=== PATIENT | female | born 1985 | race African-American/Black ===

== ENCOUNTER 2018-12-10 09:34 | Day surgery (SDC) | payer OTHER ==
[2018-12-10 09:47] VITALS: BMI 31.2
[2018-12-10 12:35] VITALS: TEMP 98
[2018-12-10 12:54] VITALS: PULSE 62
[2018-12-10 13:27] VITALS: BP 113/70
== END 2018-12-10 13:42 | disposition home or self-care (01) ==
LOC: JASU-ENDO 09:34
PROVIDERS: ATTEND Internal Medicine Gastroenterology
PROC: 0DJD8ZZ Inspection of Lower Intestinal Tract, Via Natural or Artificial Opening Endoscopic (ICD-10-PCS; principal; 2018-12-10 10:30)
DX: D50.9 Iron deficiency anemia, unspecified (principal); K63.89 Other specified diseases of intestine; K64.8 Other hemorrhoids
CPT/HCPCS: 84703

== ENCOUNTER 2018-12-15 09:46 | Day surgery (SDC) | payer OTHER ==
[2018-12-14 15:11] VITALS: BMI 30.6
[2018-12-15 10:41] VITALS: TEMP 98.3
[2018-12-15 12:56] VITALS: PULSE 69
[2018-12-15 13:30] VITALS: BP 125/83
--- NOTE | 2018-12-16 14:52 | PATH ---
Surgical Pathology Report Patient Name: VERONICA ZHANG [facility]. Rec. #: [id number] /Age/Gender: 1985 (Age: 33) / F Account: [id number] Location: U-ENDOSCOPY Taken: 12/15/2018 Received: 12/15/2018 Reported: 12/16/2018 Physicians: Enrique Riojas D.O. Specimen(s) Received A: STOMACH B: GE JUNCTION C: GASTRIC POLYP BODY Clinical History Anemia, dyspepsia Postoperative diagnosis: Gastritis, gastric polyp Final Diagnosis A. STOMACH, BIOPSY: GASTRIC MUCOSA WITH MODERATE CHRONIC GASTRITIS. IMMUNOHISTOCHEMICAL STAIN FOR H. PYLORI IS NEGATIVE. B. GE JUNCTION, BIOPSY: SQUAMOCOLUMNAR MUCOSA WITH SEVERE ACUTE AND CHRONIC INFLAMMATION AND CHANGES OF SEVERE REFLUX ESOPHAGITIS. NO INTESTINAL METAPLASIA OR DYSPLASIA IDENTIFIED. C. GASTRIC BODY POLYP, BIOPSY: POLYPOID GASTRIC BODY MUCOSA WITH MODERATE CHRONIC GASTRITIS. IMMUNOHISTOCHEMICAL STAIN FOR H. PYLORI IS NEGATIVE. Electronically Signed Janna Aden M.D. Gross Description A. Received in formalin, labeled "biopsy stomach" are 5 rider, irregular portions of soft tissue ranging from 0.3-0.4 cm. in greatest dimension. The specimens are submitted in toto in one cassette. B. Received in formalin, labeled "biopsy GE junction" are 2 rider, irregular portions of soft tissue measuring 0.2 and 0.3 cm. in greatest dimension. The specimens are submitted in toto in one cassette. C. Received in formalin, labeled "biopsy gastric body polyp" are 2 rider, irregular portions of soft tissue measuring 0.1 and 0.3 cm. in greatest dimension. The specimens are submitted in toto in one cassette. 12/15/201812/15/2018
== END 2018-12-15 13:31 | disposition home or self-care (01) ==
LOC: JASU-ENDO 09:46
PROVIDERS: ATTEND Internal Medicine Gastroenterology
PROC: 0DB48ZX Excision of Esophagogastric Junction, Via Natural or Artificial Opening Endoscopic, Diagnostic (ICD-10-PCS; 2018-12-15)
PROC: 0DB68ZX Excision of Stomach, Via Natural or Artificial Opening Endoscopic, Diagnostic (ICD-10-PCS; principal; 2018-12-15 10:30)
DX: K29.70 Gastritis, unspecified, without bleeding (principal); R10.13 Epigastric pain; D50.9 Iron deficiency anemia, unspecified; K31.7 Polyp of stomach and duodenum
CPT/HCPCS: 84703; 88305-TC; 88342-TC

== ENCOUNTER 2019-04-01 16:18 | Emergency (ER) | payer OTHER ==
[2019-04-01 16:23] VITALS: BP 146/92; PULSE 83; TEMP 98.1; BMI 27.8
--- NOTE | 2019-04-01 16:24 | PDOC ---
Rapid Medical Evaluation Chief Complaint: Injury Time Seen by Provider: 04/01/19 16:20 Medical Evaluation: Allergies Allergy/AdvReac Type Severity Reaction Status Date / Time No Known Allergies Allergy Verified 04/01/19 16:21 Vital Signs Temp Pulse Resp BP Pulse Ox 98.1 F 83 16 146/92 100 04/01/19 16:21 04/01/19 16:21 04/01/19 16:21 04/01/19 16:21 04/01/19 16:21 04/01/19 16:23 Pt c/o: rt ankle pain, twisted it yesterday Pt on brief exam: noted tender and swollen rt ankle laterally Pt ordered for: ankle xray Pt to proceed to the ED Discharge Disposition - Diagnosis Ankle pain - Referrals - Patient Instructions - Post Discharge Activity
--- NOTE | 2019-04-01 17:19 | PDOC ---
History of Present Illness - General Chief Complaint: Injury Stated Complaint: RT ANKLE PAIN Time Seen by Provider: 04/01/19 16:20 History Source: Patient Exam Limitations: No Limitations - History of Present Illness Initial Comments: 04/01/19 17:18 sustained inversion injury yesterday after tripping and falling over l sandals. Pain and swelling to right lateral ankle Occurred: reports: yesterday Severity: reports: mild, moderate Pain Location: reports: lower extremity (right ankle and foot) Past History - Past Medical History Allergies/Adverse Reactions: Allergies Allergy/AdvReac Type Severity Reaction Status Date / Time No Known Allergies Allergy Verified 04/01/19 16:21 Home Medications: Ambulatory Orders Amlodipine Besylate 10 mg PO DAILY 12/09/18 Ascorbic Acid [Vitamin C] 500 mg PO DAILY 12/09/18 Atorvastatin Ca [Lipitor] 10 mg PO HS 12/09/18 Chlorthalidone 50 mg PO DAILY 12/09/18 Docusate Sodium [Colace] 100 mg PO DAILY PRN 12/09/18 Ferrous Sulfate 325 mg PO DAILY 12/09/18 Polyethylene Glycol 3350 [Miralax 119 gm Btl -] 17 gm PO DAILY 12/09/18 Anemia: Yes (iron deficiency) GI Disorders: Yes (chronic constipation) HTN: Yes Hypercholesterolemia: Yes - Suicide/Smoking/Psychosocial Hx Smoking History: Never smoked Have you smoked in the past 12 months: No Hx Alcohol Use: No Drug/Substance Use Hx: No Substance Use Type: None Review of Systems - Review of Systems Able to Perform ROS?: Yes Is the patient limited Urdu proficient: Yes Constitutional: Yes: See HPI. No: Symptoms Reported, Fever, Malaise HEENTM: Yes: See HPI. No: Symptoms Reported Musculoskeletal: Yes: Symptoms Reported, See HPI, Joint Pain, Joint Swelling Neurological: Yes: Symptoms reported, See HPI All Other Systems: Reviewed and Negative *Physical Exam - Vital Signs Last Vital Signs Temp Pulse Resp BP Pulse Ox 98.1 F 83 16 146/92 100 04/01/19 16:21 04/01/19 16:21 04/01/19 16:21 04/01/19 16:21 04/01/19 16:21 - Physical Exam General Appearance: Yes: Nourished, Appropriately Dressed, Apparent Distress HEENT: positive: MARISA, Normal ENT Inspection, TMs Normal, Pharynx Normal Neck: positive: Supple. negative: Tender Respiratory/Chest: positive: Lungs Clear Gastrointestinal/Abdominal: positive: Soft Musculoskeletal: positive: Normal Inspection. negative: CVA Tenderness Extremity: positive: Normal Capillary Refill, Tender (some swelling to the lateral aspect of foot, no point tenderness to the medial or lateral malleolus, no fifth metatarsal navicular tenderness. Negative squeeze test. Neurovascular intact to toes). negative: Normal Range of Motion (emitted secondary to tenderness to the lateral malleolus) Integumentary: positive: Dry, Warm Neurologic: positive: latent print examiner II-XII NML intact, Fully Oriented, Alert, Normal Mood/ Affect, Normal Response, Motor Strength /5 Progress Note - Progress Note Progress Note: Right ankle sprain, Negative for fractures or dislocations,. Nacho and Aircast/ crutches provided. *DC/Admit/Observation/Transfer Diagnosis at time of Disposition: Ankle pain Qualifiers: Chronicity: acute Laterality: right Qualified Code(s): M25.571 - Pain in right ankle and joints of right foot - Discharge Dispostion Disposition: HOME Condition at time of disposition: Stable Decision to Admit order: No - Referrals Referrals: Tricia Foss MD [Primary Care Provider] - Efren Gibbs MD [Staff Physician] - - Patient Instructions Printed Discharge Instructions: DI for Ankle Sprain Additional Instructions: Rest, ice to area on and off for 15 minutes 4-6 times a day Avoid heavy lifting or exercise until pain and swelling is resolved or until further directed Keep area highly elevated to reduce swelling Use splints/Nacho wrap as directed Followup with orthopedist in one to 2 days if not improving, if significantly improved may wait one week for followup with orthopedist May use ibuprofen every 6 hours as needed for pain - Post Discharge Activity Forms/Work/School Notes: Back to Work
== END 2019-04-01 17:25 | disposition home or self-care (01) ==
LOC: JERFT 16:18
PROC: 2W3QX1Z Immobilization of Right Lower Leg using Splint (ICD-10-PCS; principal; 2019-04-01)
DX: S93.401A Sprain of unspecified ligament of right ankle, initial encounter (principal); W01.0XXA Fall on same level from slipping, tripping and stumbling without subsequent striking against object, initial encounter; Y93.89 Activity, other specified; Y92.89 Other specified places as the place of occurrence of the external cause; I10 Essential (primary) hypertension; E78.00 Pure hypercholesterolemia, unspecified
CPT/HCPCS: 73610-TC-RT-FY; 99281-25

== ENCOUNTER 2020-02-10 16:19 | Inpatient (IN) | payer OTHER ==
--- NOTE | 2020-02-10 18:39 | PDOC ---
History of Present Illness <Kailey Chahal - Last Filed: 02/10/20 19:03> - General History Source: Patient Exam Limitations: No Limitations - History of Present Illness Initial Comments: 02/10/20 18:39 34 year old female with history of HTN, HLD, and +Quantiferon TB tests in January presents to the ED per Infectious Disease, Dr. Byrd. She denies recent travel. Reports occasional pleuritic pain, tender lymph nodes, recent weight loss, and p ost-nasal drip with blood. Denies fever, night sweats, cough, SOB, hemoptysis, nausea, vomiting, diarrhea, constipation. 02/10/20 19:53 <Jordan Byrnes - Last Filed: 02/10/20 23:53> - General Stated Complaint: +Tuberculosis Time Seen by Provider: 02/10/20 17:03 Past History <Kailey Chahal - Last Filed: 02/10/20 19:03> - Travel History Traveled outside of the country in the last 30 days: No - Medical History Anemia: Yes (iron deficiency) COPD: No GI Disorders: Yes (chronic constipation) HTN: Yes Hypercholesterolemia: Yes - Immunization History Immunization Up to Date: Yes - Psycho-Social/Smoking History Smoking History: Never smoked Have you smoked in the past 12 months: No Information on smoking cessation initiated: No - Substance Abuse Hx (Audit-C & DAST Scrn) How often the patient has a drink containing alcohol: Never Score: In Men: 4 or > Positive; In Women: 3 or > Positive: 0 Screen Result (Pos requires Nsg. Audit-10AR): Negative In the last yr the pt used illegal drug/Rx for NonMed reason: No Score: Yes response is considered Positive: 0 Screen Result (Positive result requires Nsg. DAST-10): Negative <Jordan Byrnes - Last Filed: 02/10/20 23:53> - Medical History Allergies/Adverse Reactions: Allergies Allergy/AdvReac Type Severity Reaction Status Date / Time No Known Allergies Allergy Verified 04/01/19 16:21 Home Medications: Ambulatory Orders Amlodipine Besylate 10 mg PO DAILY 12/09/18 Ascorbic Acid [Vitamin C] 500 mg PO DAILY 12/09/18 Atorvastatin Ca [Lipitor] 10 mg PO HS 12/09/18 Chlorthalidone 50 mg PO DAILY 12/09/18 Docusate Sodium [Colace] 100 mg PO DAILY PRN 12/09/18 Ferrous Sulfate 325 mg PO DAILY 12/09/18 Polyethylene Glycol 3350 [Miralax 119 gm Btl -] 17 gm PO DAILY 12/09/18 Review of Systems - Review of Systems Able to Perform ROS?: Yes Is the patient limited Yakut proficient: No Constitutional: No: Fever, Night Sweats HEENTM: Yes: Other (Tender LAD, blood streaked post nasal drip) Respiratory: No: Cough, Shortness of Breath, Productive cough, Hemoptysis Cardiac (ROS): Yes: Other (Pleuritic CP). No: Chest Pain ABD/GI: No: Constipated, Diarrhea, Nausea, Vomiting : No: Dysuria, Hematuria Neurological: No: Paresthesia, Tingling <Jordan Byrnes - Last Filed: 02/10/20 23:53> *Physical Exam - Vital Signs Last Vital Signs Temp Pulse Resp BP Pulse Ox 98.4 F 84 18 133/88 98 02/10/20 16:20 02/10/20 16:20 02/10/20 16:20 02/10/20 16:20 02/10/20 16:56 <Kailey Chahal - Last Filed: 02/10/20 19:03> - Vital Signs Last Vital Signs Temp Pulse Resp BP Pulse Ox 98.4 F 84 18 133/88 98 02/10/20 16:20 02/10/20 16:20 02/10/20 16:20 02/10/20 16:20 02/10/20 16:56 - Physical Exam General Appearance: Yes: Nourished, Appropriately Dressed. No: Apparent Distress HEENT: positive: EOMI, Normal Voice Neck: negative: Lymphadenopathy (R), Lymphadenopathy (L) Respiratory/Chest: positive: Lungs Clear, Normal Breath Sounds Cardiovascular: positive: Regular Rhythm, Regular Rate, S1, S2 Lymphatic: negative: Adenopathy, Tenderness Musculoskeletal: negative: Decreased Range of Motion Extremity: positive: Normal Inspection, Normal Range of Motion Integumentary: positive: Dry, Warm Neurologic: positive: Fully Oriented, Alert <Jordan Byrnes - Last Filed: 02/10/20 23:53> ED Treatment Course - LABORATORY CBC & Chemistry Diagram: 02/10/20 20:00 02/10/20 20:00 <Jordan Byrnes - Last Filed: 02/10/20 23:53> Medical Decision Making - Medical Decision Making 02/10/20 19:05 Patient is a 34 year old female with history of 2 positive Quantiferon TB tests in January, was advised by Dr. Byrd with infectious disease to go to the ED for admission to have Chest CT with IV contrast and AFB sputum culture done. Patient is otherwise stable and has no significant complaints. Patient will be admitted to hospitalist team and Dr. Byrd is consulted. <Jordan Byrnes - Last Filed: 02/10/20 23:53> Discharge - Admission Yes <Kailey Chahal - Last Filed: 02/10/20 19:03> - Discharge Information Problems reviewed: Yes - Admission Yes <Jordan Byrnes - Last Filed: 02/10/20 23:53> - Discharge Information Clinical Impression/Diagnosis: Tuberculosis Condition: Stable - Follow up/Referral Referrals: Tricia Foss MD [Primary Care Provider] - - Patient Discharge Instructions - Post Discharge Activity
[2020-02-10] MEDS ORDERED: DOCUSATE SODIUM 100 MG CAPSULE (FP) PO PRN (19:23)
--- NOTE | 2020-02-10 19:24 | HP ---
CHIEF COMPLAINT: +Quantiferon, PCP:Prudence HISTORY OF PRESENT ILLNESS: Aleshia Hoang is a 34 yr old F, medical condition HTN, HLD, sent from ID office for evaluation of +Quantiferon. pt seems to be a reliable historian, pt reports she took the Quatiferon test beginning of January which came back positive. repeat done couple of weeks later and also positive. 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 Reports occasional pleuritic pain, tender lymph nodes, recent weight loss, and post- nasal drip with blood. Denies fever, night sweats, cough, SOB, hemoptysis, nausea, vomiting, diarrhea, constipation. ER course was notable for: (1)afebrile (2) (3) Recent Travel: PAST MEDICAL HISTORY: HTN HLD Constipation PAST SURGICAL HISTORY: Social History: Smoking:denies Alcohol:denies Drugs: denies FAMILY HISTORY: Mother- HTN, CVA Father- HTN, throat ca Allergies No Known Allergies Allergy (Verified 04/01/19 16:21) HOME MEDICATIONS: Home Medications Medication Instructions Recorded Amlodipine Besylate 10 mg PO DAILY 12/09/18 Ascorbic Acid [Vitamin C] 500 mg PO DAILY 12/09/18 Atorvastatin Ca [Lipitor] 10 mg PO HS 12/09/18 Chlorthalidone 50 mg PO DAILY 12/09/18 Docusate Sodium [Colace] 100 mg PO DAILY PRN 12/09/18 Ferrous Sulfate 325 mg PO DAILY 12/09/18 Polyethylene Glycol 3350 [Miralax 17 gm PO DAILY 12/09/18 119 gm Btl -] REVIEW OF SYSTEMS CONSTITUTIONAL: Absent: fever, chills, diaphoresis, generalized weakness, malaise, loss of appetite, weight change HEENT: Absent: rhinorrhea, nasal congestion, throat pain, throat swelling, difficulty swallowing, mouth swelling, ear pain, eye pain, visual changes CARDIOVASCULAR: Absent: chest pain, syncope, palpitations, irregular heart rate, lightheadedness, peripheral edema RESPIRATORY: Absent: cough, shortness of breath, dyspnea with exertion, orthopnea, wheezing, stridor, hemoptysis GASTROINTESTINAL: Absent: abdominal pain, abdominal distension, nausea, vomiting, diarrhea, constipation, melena, hematochezia GENITOURINARY: Absent: dysuria, frequency, urgency, hesitancy, hematuria, flank pain, genital pain MUSCULOSKELETAL: Absent: myalgia, arthralgia, joint swelling, back pain, neck pain SKIN: Absent: rash, itching, pallor HEMATOLOGIC/IMMUNOLOGIC: Absent: easy bleeding, easy bruising, lymphadenopathy, frequent infections ENDOCRINE: Absent: unexplained weight gain, unexplained weight loss, heat intolerance, cold intolerance NEUROLOGIC: Absent: headache, focal weakness or paresthesias, dizziness, unsteady gait, seizure, mental status changes, bladder or bowel incontinence PSYCHIATRIC: Absent: anxiety, depression, suicidal or homicidal ideation, hallucinations. PHYSICAL EXAMINATION Vital Signs - 24 hr 02/10/20 02/10/20 16:20 16:56 Temperature 98.4 F Pulse Rate 84 Respiratory 18 Rate Blood Pressure 133/88 O2 Sat by Pulse 99 98 Oximetry (%) GENERAL: Awake, alert, and fully oriented, in no acute distress. HEAD: Normal with no signs of trauma. EYES: Pupils equal, round and reactive to light, extraocular movements intact, sclera anicteric, conjunctiva clear. No lid lag. EARS, NOSE, THROAT: Ears normal, nares patent, oropharynx clear without exudates. Moist mucous membranes. NECK: Normal range of motion, supple without lymphadenopathy, JVD, or masses. LUNGS: Breath sounds equal, clear to auscultation bilaterally. No wheezes, and no crackles. No accessory muscle use. HEART: Regular rate and rhythm, normal S1 and S2 without murmur, rub or gallop. ABDOMEN: Soft, nontender, not distended, normoactive bowel sounds, no guarding, no rebound, no masses. No hepatomegaly or splenomegaly. MUSCULOSKELETAL: Normal range of motion at all joints. No bony deformities or tenderness. No CVA tenderness. UPPER EXTREMITIES: 2+ pulses, warm, well-perfused. No cyanosis. No clubbing. No peripheral edema. LOWER EXTREMITIES: 2+ pulses, warm, well-perfused. No calf tenderness. No peripheral edema. NEUROLOGICAL: Cranial nerves II-XII intact. Normal speech. Normal gait. PSYCHIATRIC: Cooperative. Good eye contact. Appropriate mood and affect. SKIN: Warm, dry, normal turgor, no rashes or lesions noted, normal capillary refill. ASSESSMENT/PLAN: Aleshia Hoang is a 34 yr old F, medical condition HTN, HLD admitted for Admitting Diagnosis +Quantiferon r/o TB Chronic Conditions HTN HLD # +Quantiferon r/o TB -airborne/contact isolation -CT chest -ID consult -sputum AFB ordered -US neck for lymphadenopathy #HTN #HLD -resume home meds Full Code Visit type - Emergency Visit Emergency Visit: Yes Care time: The patient presented to the Emergency Department on the above date and was hospitalized for further evaluation of their emergent condition. - New Patient This patient is new to me today: Yes Date on this admission: 02/10/20 - Critical Care Critical Care patient: No
--- NOTE | 2020-02-10 19:39 | PDOC ---
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 per pt she was having a nasal drip recently ad coughed up blood. was then referred to dr richter who performed tb test which was positive. pt states she had negative test on 08/2019. unsure of any exposures. no recent travel . mild weight loss but attributed to eating less. no night sweats. no current sob. - Physicial Exam PE: 02/10/20 19:37 awake alert lungs clear bilat heart rrr no mrg abd soft nt nd ext wwp. no edema. nocalf tenderness. skin warm and dry. - Medical Decision Making 02/10/20 19:38 34 yo F with h/o positive tb test, hemoptysis, here for workup. plan to admit. per dr richter. ct chest with contrast ordered. basic labs. ct chest and labs pending. pt well appearing currently. Discharge - Discharge Information Problems reviewed: Yes Clinical Impression/Diagnosis: Tuberculosis Condition: Stable - Follow up/Referral - Patient Discharge Instructions - Post Discharge Activity
[2020-02-10 20:16] LABS: BASO % 1.1 % (0-2.0); EOS % 1.2 % (0-4.5); HEMATOCRIT 35.4 % (32.4-45.2); HEMOGLOBIN 11.7 GM/dL (10.7-15.3); LYMPH % 42.9 % (8-40); MCH 27.4 pg (25.7-33.7); MEAN CELL VOLUME 83.1 fl (80-96); MEAN PLT VOLUME 8.7 fl (7.5-11.1); MONO % 8.7 % (3.8-10.2); NEUT % 46.1 % (42.8-82.8); PLATELET COUNT 301 K/MM3 (134-434); RBC 4.26 M/mm3 (3.60-5.2); RDW 14.2 % (11.6-15.6)
[2020-02-10 20:42] LABS: ALBUMIN 3.9 g/dl (3.4-5.0); BILIRUBIN,TOTAL 0.4 mg/dL (0.2-1); BLOOD UREA NITROGEN 13.8 mg/dL (7-18); CALCIUM 8.8 mg/dL (8.5-10.1); CREATININE 0.9 mg/dL (0.55-1.3); POTASSIUM 4.2 mmol/L (3.5-5.1); TOT PROT 7.6 g/dl (6.4-8.2)
[2020-02-10] MEDS ORDERED: ATORVASTATIN CA 10 MG TABLET (FP) ONE (22:51)
[2020-02-10] MEDS: ATORVASTATIN CA 10 MG TABLET (FP) PO SCH (22:57)
[2020-02-11 04:52] VITALS: BMI 29.6
[2020-02-11 07:52] LABS: HEMOGLOBIN 10.6 GM/dL (10.7-15.3); MCH 26.7 pg (25.7-33.7); MCHC 32.1 g/dl (32.0-36.0); MEAN CELL VOLUME 83.2 fl (80-96); PLATELET COUNT 246 K/MM3 (134-434); RBC 3.96 M/mm3 (3.60-5.2); RDW 13.6 % (11.6-15.6); WHITE BLOOD COUNT 4.1 K/mm3 (4.0-10.0)
[2020-02-11 08:17] LABS: ALBUMIN 3.4 g/dl (3.4-5.0); BILIRUBIN,TOTAL 0.6 mg/dL (0.2-1); BLOOD UREA NITROGEN 9.3 mg/dL (7-18); CALCIUM 8.5 mg/dL (8.5-10.1); CREATININE 0.5 mg/dL (0.55-1.3); POTASSIUM 3.5 mmol/L (3.5-5.1); TOT PROT 6.4 g/dl (6.4-8.2)
--- NOTE | 2020-02-11 09:13 | PN ---
Progress Note, Physician Chief Complaint: Seen and examined. On RA. In no distress. On isolation precautions to r/o TB. COVID PCR also pending History of Present Illness: 34 yr old F, medical condition HTN, HLD admitted to r/o TB - Current Medication List Current Medications: Active Medications Amlodipine Besylate (Norvasc -) 10 mg PO DAILY [facility] Ascorbic Acid (Vitamin C -) 500 mg PO DAILY@0800 [facility] Atorvastatin Calcium (Lipitor -) 10 mg PO HS [facility] Last Admin: 02/10/20 22:57 Dose: 10 mg Documented by: Chlorthalidone (Hygroton -) 50 mg PO DAILY [facility] Docusate Sodium (Colace -) 100 mg PO DAILY PRN PRN Reason: CONSTIPATION Ferrous Sulfate (Feosol -) 325 mg PO DAILY@0800 [facility] Polyethylene Glycol (Miralax (For Daily Use) -) 17 gm PO DAILY [facility] - Objective Vital Signs: Vital Signs Temperature 99.1 F 02/11/20 06:00 Pulse Rate 73 02/11/20 06:00 Respiratory Rate 20 02/11/20 06:00 Blood Pressure 153/73 02/11/20 06:00 O2 Sat by Pulse Oximetry (%) 100 02/10/20 22:40 Constitutional: Yes: Well Nourished, No Distress, Calm Eyes: Yes: WNL, Conjunctiva Clear HENT: Yes: WNL, Atraumatic, Normocephalic Neck: Yes: WNL, Supple, Trachea Midline Cardiovascular: Yes: WNL, Regular Rate and Rhythm Respiratory: Yes: WNL, Regular, CTA Bilaterally Gastrointestinal: Yes: WNL, Normal Bowel Sounds ...Rectal Exam: Yes: Deferred Genitourinary: Yes: WNL Breast(s): Yes: WNL Musculoskeletal: Yes: WNL Extremities: Yes: WNL Edema: No Peripheral Pulses WNL: Yes Peripheral Pulses: Left Radial: 2+, Right Radial: 2+, Left Doralis Pedis: 2+, Ri ght Dorsalis Pedis: 2+, Left Femoral: 2+, Right Femoral: 2+ Integumentary: Yes: WNL Neurological: Yes: WNL, Alert, Oriented ...Motor Strength: WNL Psychiatric: Yes: WNL Labs: CBC, BMP 02/11/20 06:19 02/11/20 06:19 - ....Imaging Chest X-ray: Report Reviewed Problem List - Problems (1) HTN (hypertension) Assessment/Plan: normotensive c/w hctz Code(s): I10 - ESSENTIAL (PRIMARY) HYPERTENSION (2) HLD (hyperlipidemia) Assessment/Plan: c/w atorvastatin low chol diet Code(s): E78.5 - HYPERLIPIDEMIA, UNSPECIFIED (3) Positive 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 Assessment/Plan: positive x 2 no infiltarte seen on CT right lower lobe pulmonic calcification 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 2mm right lower lobe pulmonary nodule Code(s): R76.12 - NONSPEC REACTION TO GAMMA INTRFRN RESPNS W/O ACTV TUBRCLOSIS (4) Tuberculosis Assessment/Plan: r/o active TB AFB x 3 specimens if can not expectorate-will obtain induction Code(s): A15.9 - RESPIRATORY TUBERCULOSIS UNSPECIFIED (5) Person under investigation for COVID-19 Assessment/Plan: COVID Suspicion low On RA strict airborne/droplet precautions until resulted Code(s): Z20.828 - CONTACT W AND EXPOSURE TO OTH VIRAL COMMUNICABLE DISEASES (6) Prophylactic measure Assessment/Plan: FEN Fluids: adequate PO intake Electrolytes: monitor & replete as needed Nutrition: low chol diet DVT ambulatory Dispo Maintain as inpatient full code discharge planning Code(s): Z29.9 - ENCOUNTER FOR PROPHYLACTIC MEASURES, UNSPECIFIED (7) Hemoptysis Assessment/Plan: saline nebs quantify amount Code(s): R04.2 - HEMOPTYSIS Visit type - Emergency Visit Emergency Visit: Yes ED Registration Date: 02/10/20 Care time: The patient presented to the Emergency Department on the above date and was hospitalized for further evaluation of their emergent condition. - New Patient This patient is new to me today: Yes Date on this admission: 02/11/20 - Critical Care Critical Care patient: No - Discharge Referral Referred to [facility] Med P.C.: No
[2020-02-11] MEDS ORDERED: PT OWN MED DRAWER 7, Y5N ONE (09:51)
[2020-02-11] MEDS ORDERED: CHLORTHALIDONE 50 MG TABLET PO SCH (10:00)
[2020-02-11] MEDS: FERROUS SO4 325 MG TABLET (FP) PO SCH (10:01)
[2020-02-11] MEDS: ASCORBIC ACID 500 MG TABLET (FP) PO SCH (10:01)
[2020-02-11] MEDS: amLODIPine BESYLATE 10 MG TABLET (FP) PO SCH (10:01)
[2020-02-11] MEDS: POLYETHYLENE GLYCOL 3350 119 GM BTL PO SCH (10:01)
[2020-02-11] MEDS ORDERED: CHLORTHALIDONE 25 MG TABLET PO SCH (10:12)
--- NOTE | 2020-02-11 10:54 | PN ---
Progress Note (short form) - Note Progress Note: PULMONARY CONSULTATION DICTATED 02/11/20 IMP R/O ACTIVE TB vs LATENT TB +QUANTIFERON GOLD HEMOPTYSIS HTN HLD PLAN SPUTUM AFB X 3 IF AFB NEGATIVE START RIFAMPIN 600mg DAILY X 4 MONTHS OR INH + RIFAMPIN DAILY X 3 MONTHS F/U CHEST X-RAYS DR BLISS Problem List - Problems (1) HLD (hyperlipidemia) Code(s): E78.5 - HYPERLIPIDEMIA, UNSPECIFIED (2) HTN (hypertension) Code(s): I10 - ESSENTIAL (PRIMARY) HYPERTENSION (3) Positive 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 Code(s): R76.12 - NONSPEC REACTION TO GAMMA INTRFRN RESPNS W/O ACTV TUBRCLOSIS
[2020-02-11] MEDS: HYDROCHLOROTHIAZIDE 12.5 MG CAPSULE (FP) PO SCH (13:59)
--- NOTE | 2020-02-11 14:25 | CONS ---
DATE OF CONSULTATION: 02/11/2020 PULMONARY CONSULTATION REFERRING PHYSICIAN: DARCI Delgado HISTORY OF PRESENT ILLNESS: Patient is a 34-year-old female with a past medical history of hypertension and hyperlipidemia, admitted to [facility] for evaluation of positive QuantiFERON. Patient apparently had an episode about 3 months ago of coughing and also had an episode of hemoptysis. She states that at the time she had sinus congestion. Since that time she has been having intermittent blood-streaked sputum which she attributes to postnasal drip and reflux. Apparently she underwent a QuantiFERON test at the beginning of August which was negative. She had a repeat done a couple of weeks prior to this admission that also came back positive. Denies any weight loss. Denies sweats. Denies hemoptysis. Denies any fevers or chills. Denies any chest pains or palpitations. The patient is currently employed as a home health aide. Denies any recent exposure to patients with TB. PAST MEDICAL HISTORY: Again includes hypertension and hyperlipidemia. CURRENT MEDICATIONS: Include MiraLAX, Colace, Lipitor, Feosol, hydrochlorothiazide and vitamin B and C. SOCIAL HISTORY: Born in [place]. Nurse's aide by profession. No history of tobacco use. PHYSICAL EXAMINATION: General: Patient is a well-developed, well-nourished female, awake, alert, in no acute distress. Vital Signs: She is afebrile, O2 saturation is 100 on room air, blood pressure 163/73, respiratory rate is 20. HEENT: Normocephalic, atraumatic. Neck: Supple. Heart: Regular, S1-S2. Chest: Clear. Abdomen: Soft, bowel sounds are positive. Extremities: No cyanosis or edema. LABORATORIES: WBC is 4.1, hemoglobin 10.6, hematocrit 33, platelet count of 246,000. BUN is 9, creatinine 0.5. Serology COVID pending. Chest CT: A 2-mm noncalcified nodule on oblique in the right lower lobe inferiorly. No evidence of infiltration or effusions. IMPRESSION: 1. Positive QuantiFERON gold. 2. Rule out active tuberculosis vs latent TB 3. Hemoptysis. 4. Hypertension. 5. Hyperlipidemia. PLAN: Sputum for AFB x3. If AFB negative consider rifampin 600 daily x4 months or INH 300mg + rifampin 600mg daily x3 months. Followup chest x-rays. Abraham SALMERON/[id number] MTDD
--- NOTE | 2020-02-11 17:31 | CON.ID ---
Consult - History of Present Illness History of Present Illness: 34 y.o. Jimmy born female with PMH of HTN, HLD, iron-deficiency anemia, sinusitis admitted to r/o active TB. Pt states that she had some blood streaked- sputum a few months ago that was attributed to post-nasal drip. Routine screening for TB was done in 08/2019 and she was PPD negative at the time. Due to some mild, occasional hemoptysis she had Quantiferon testing one month ago which was positive/CXR negative. Repeat testing 2 wks later was positive as well. Was seen by ENT and not found to have any acute issues. She denies persistent cough, SOB, fever, chills, or nightsweats. She has lost approximately 10 lbs in the last few months but possibly intentionally. 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 Pt does complain of mild b/l neck discomfort when taking a deep breath. In the ER she was found to have normal vitals, afebrile, without respiratory distress. CT Chest with small RLL nodule but otherwise no infiltrates/effusions. Pt denies hemoptysis today and has not been coughing. States she has no other complaints. - History Source History Provided By: Patient Limitations to Obtaining History: No Limitations - Past Medical History Cardio/Vascular: Yes: HTN, Hyperlipdemia ...: No ENT: Yes: Sinusitis - Alcohol/Substance Use Hx Alcohol Use: No - Smoking History Smoking history: Never smoked Have you smoked in the past 12 months: No - Social History Occupation: Home health aid Came to [place] (year[place] 10 yrs ago History of Recent Travel: No Home Medications - Allergies Allergies/Adverse Reactions: Allergies Allergy/AdvReac Type Severity Reaction Status Date / Time No Known Allergies Allergy Verified 04/01/19 16:21 - Home Medications Home Medications: Ambulatory Orders Amlodipine Besylate 10 mg PO DAILY 12/09/18 Ascorbic Acid [Vitamin C] 500 mg PO DAILY 12/09/18 Atorvastatin Ca [Lipitor] 10 mg PO HS 12/09/18 Chlorthalidone 50 mg PO DAILY 12/09/18 Docusate Sodium [Colace] 100 mg PO DAILY PRN 12/09/18 Ferrous Sulfate 325 mg PO DAILY 12/09/18 Polyethylene Glycol 3350 [Miralax 119 gm Btl -] 17 gm PO DAILY 12/09/18 Review of Systems - Review of Systems Constitutional: reports: No Symptoms Eyes: reports: No Symptoms Neck: reports: Swollen Glands (? b/l tenderness occasionally) Cardiovascular: reports: No Symptoms Respiratory: reports: Hemoptysis (scant, occasional) Gastrointestinal: reports: No Symptoms Genitourinary: reports: No Symptoms Breasts: reports: No Symptoms Reported Musculoskeletal: reports: No Symptoms Integumentary: reports: No Symptoms Neurological: reports: No Symptoms Endocrine: reports: No Symptoms Hematology/Lymphatic: reports: No Symptoms Psychiatric: reports: No Symptoms Physical Exam Vital Signs: Vital Signs Temperature 98.4 F 02/11/20 15:50 Pulse Rate 77 02/11/20 15:50 Respiratory Rate 20 02/11/20 15:50 Blood Pressure 127/89 02/11/20 15:50 O2 Sat by Pulse Oximetry (%) 100 02/11/20 09:00 Constitutional: Yes: Well Nourished, No Distress, Calm Eyes: Yes: Conjunctiva Clear, EOM Intact, PERRL HENT: Yes: Atraumatic, Normocephalic Cardiovascular: Yes: Regular Rate and Rhythm Respiratory: Yes: CTA Bilaterally Gastrointestinal: Yes: Normal Bowel Sounds, Soft Renal/: Yes: WNL Musculoskeletal: Yes: WNL Extremities: Yes: WNL Edema: No Peripheral Pulses WNL: Yes Integumentary: Yes: WNL Neurological: Yes: Alert, Oriented Psychiatric: Yes: Alert Labs: CBC, BMP 02/11/20 06:19 02/11/20 06:19 Laboratory Tests 02/10/20 02/10/20 02/10/20 20:00 20:00 20:00 WBC 5.0 RBC 4.26 Hgb 11.7 Hct 35.4 MCV 83.1 MCH 27.4 MCHC 33.0 RDW 14.2 Plt Count 301 MPV 8.7 Absolute Neuts (auto) 2.3 Neutrophils % 46.1 Lymphocytes % 42.9 H Monocytes % 8.7 Eosinophils % 1.2 Basophils % 1.1 Nucleated RBC % 0 Sodium 139 Potassium 4.2 Chloride 105 Carbon Dioxide 28 Anion Gap 6 L BUN 13.8 Creatinine 0.9 Est GFR (CKD-EPI)AfAm 95.34 Est GFR (CKD-EPI)NonAf 82.26 Random Glucose 93 Calcium 8.8 Magnesium Total Bilirubin 0.4 AST 26 ALT 22 Alkaline Phosphatase 59 Total Protein 7.6 Albumin 3.9 Serum , Qual Negative 02/11/20 02/11/20 06:19 06:19 WBC 4.1 RBC 3.96 Hgb 10.6 L Hct 33.0 MCV 83.2 MCH 26.7 MCHC 32.1 RDW 13.6 Plt Count 246 MPV 9.0 Absolute Neuts (auto) Neutrophils % Lymphocytes % Monocytes % Eosinophils % Basophils % Nucleated RBC % Sodium 137 Potassium 3.5 Chloride 104 Carbon Dioxide 27 Anion Gap 7 L BUN 9.3 Creatinine 0.5 L Est GFR (CKD-EPI)AfAm 144.31 Est GFR (CKD-EPI)NonAf 124.51 Random Glucose 78 Calcium 8.5 Magnesium 2.0 Total Bilirubin 0.6 AST 12 L ALT 17 Alkaline Phosphatase 48 Total Protein 6.4 Albumin 3.4 Serum , Qual Imaging - Results Chest X-ray: Pending X-ray: Pending Cat Scan: Report Reviewed Problem List - Problems (1) HLD (hyperlipidemia) Code(s): E78.5 - HYPERLIPIDEMIA, UNSPECIFIED (2) HTN (hypertension) Code(s): I10 - ESSENTIAL (PRIMARY) HYPERTENSION (3) Hemoptysis Code(s): R04.2 - HEMOPTYSIS (4) Positive 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 Code(s): R76.12 - NONSPEC REACTION TO GAMMA INTRFRN RESPNS W/O ACTV TUBRCLOSIS Assessment/Plan 34 y.o. female with HTN, HLD, anemia, sinusitis presents for episodes of hemoptysis and recent +Quantiferon tests R/O Active vs latent TB Lympadenopathy HTN HLD Anemia Sinusitis -- send sputum for AFB -- on airborne precautions -- CT results noted, follow up Neck Xray, consider CT -- follow up COVID screen results -- no hemoptysis currently/vitals stable/without respiratory symptoms Will follow Thank you
[2020-02-11] MEDS: ATORVASTATIN CA 10 MG TABLET (FP) PO SCH (21:42)
[2020-02-12] MEDS: ASCORBIC ACID 500 MG TABLET (FP) PO SCH (08:47)
[2020-02-12] MEDS: HYDROCHLOROTHIAZIDE 12.5 MG CAPSULE (FP) PO SCH (09:06)
[2020-02-12] MEDS: POLYETHYLENE GLYCOL 3350 119 GM BTL PO SCH (09:06)
[2020-02-12] MEDS: FERROUS SO4 325 MG TABLET (FP) PO SCH (09:06)
[2020-02-12] MEDS: amLODIPine BESYLATE 10 MG TABLET (FP) PO SCH (09:06)
--- NOTE | 2020-02-12 09:28 | PN ---
Progress Note, Physician Chief Complaint: Seen and examined. On RA. In no distress. On isolation precautions to r/o TB. 08/13 sputum cx sent. Not able to sproduce sputum. COVID PCR also pending History of Present Illness: 34 yr old F, medical condition HTN, HLD admitted to r/o TB - Current Medication List Current Medications: Active Medications Amlodipine Besylate (Norvasc -) 10 mg PO DAILY [facility] Last Admin: 02/12/20 09:06 Dose: 10 mg Documented by: Ascorbic Acid (Vitamin C -) 500 mg PO DAILY@0800 [facility] Last Admin: 02/12/20 08:47 Dose: 500 mg Documented by: Atorvastatin Calcium (Lipitor -) 10 mg PO HS [facility] Last Admin: 02/11/20 21:42 Dose: 10 mg Documented by: Docusate Sodium (Colace -) 100 mg PO DAILY PRN PRN Reason: CONSTIPATION Ferrous Sulfate (Feosol -) 325 mg PO DAILY@0800 [facility] Last Admin: 02/12/20 09:06 Dose: 325 mg Documented by: Hydrochlorothiazide (Hctz -) 12.5 mg PO DAILY [facility] Last Admin: 02/12/20 09:06 Dose: 12.5 mg Documented by: Polyethylene Glycol (Miralax (For Daily Use) -) 17 gm PO DAILY [facility] Last Admin: 02/12/20 09:06 Dose: 17 gm Documented by: - Objective Vital Signs: Vital Signs Temperature 98.6 F 02/12/20 07:49 Pulse Rate 72 02/12/20 07:49 Respiratory Rate 20 02/12/20 07:49 Blood Pressure 114/77 02/12/20 07:49 O2 Sat by Pulse Oximetry (%) 100 02/11/20 09:00 Additional Findings/Remarks: Constitutional: Yes: Well Nourished, No Distress, Calm Eyes: Yes: WNL, Conjunctiva Clear HENT: Yes: WNL, Atraumatic, Normocephalic Neck: Yes: WNL, Supple, Trachea Midline Cardiovascular: Yes: WNL, Regular Rate and Rhythm Respiratory: Yes: WNL, Regular, CTA Bilaterally Gastrointestinal: Yes: WNL, Normal Bowel Sounds ...Rectal Exam: Yes: Deferred Genitourinary: Yes: WNL Breast(s): Yes: WNL Musculoskeletal: Yes: WNL Extremities: Yes: WNL Edema: No Peripheral Pulses WNL: Yes Peripheral Pulses: Left Radial: 2+, Right Radial: 2+, Left Doralis Pedis: 2+, Right Dorsalis Pedis: 2+, Left Femoral: 2+, Right Femoral: 2+ Integumentary: Yes: WNL Neurological: Yes: WNL, Alert, Oriented ...Motor Strength: WNL Psychiatric: Yes: WNL Labs: CBC, BMP 02/11/20 06:19 02/11/20 06:19 Problem List - Problems (1) HTN (hypertension) Assessment/Plan: normotensive c/w hctz Code(s): I10 - ESSENTIAL (PRIMARY) HYPERTENSION (2) HLD (hyperlipidemia) Assessment/Plan: c/w atorvastatin low chol diet Code(s): E78.5 - HYPERLIPIDEMIA, UNSPECIFIED (3) Positive 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 Assessment/Plan: positive x 2 no infiltrate seen on CT right lower lobe pulmonic calcification 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 2mm right lower lobe pulmonary nodule Code(s): R76.12 - NONSPEC REACTION TO GAMMA INTRFRN RESPNS W/O ACTV TUBRCLOSIS (4) Tuberculosis Assessment/Plan: r/o active TB AFB x 3 specimens-1 received Code(s): A15.9 - RESPIRATORY TUBERCULOSIS UNSPECIFIED (5) Person under investigation for COVID-19 Assessment/Plan: COVID Suspicion low On RA strict airborne/droplet precautions until resulted Code(s): Z20.828 - CONTACT W AND EXPOSURE TO OTH VIRAL COMMUNICABLE DISEASES (6) Prophylactic measure Assessment/Plan: FEN Fluids: adequate PO intake Electrolytes: monitor & replete as needed Nutrition: low chol diet DVT ambulatory Dispo Maintain as inpatient full code discharge planning Code(s): Z29.9 - ENCOUNTER FOR PROPHYLACTIC MEASURES, UNSPECIFIED (7) Hemoptysis Assessment/Plan: saline nebs quantify amount Code(s): R04.2 - HEMOPTYSIS Visit type - Emergency Visit Emergency Visit: Yes ED Registration Date: 02/10/20 Care time: The patient presented to the Emergency Department on the above date and was hospitalized for further evaluation of their emergent condition. - New Patient This patient is new to me today: No - Critical Care Critical Care patient: No - Discharge Referral Referred to [facility] Med P.C.: No
[2020-02-12] MEDS ORDERED: SODIUM CHLORIDE FOR INHALATION 3 ML VIAL.NEB IH PRN (10:14)
[2020-02-12 13:01] LABS: BASO % 0.7 % (0-2.0); EOS % 1.5 % (0-4.5); HEMATOCRIT 36.6 % (32.4-45.2); HEMOGLOBIN 11.9 GM/dL (10.7-15.3); LYMPH % 42.7 % (8-40); MCH 27.2 pg (25.7-33.7); MCHC 32.4 g/dl (32.0-36.0); MEAN CELL VOLUME 83.7 fl (80-96); MEAN PLT VOLUME 9.2 fl (7.5-11.1); MONO % 9.6 % (3.8-10.2); NEUT % 45.5 % (42.8-82.8); PLATELET COUNT 290 K/MM3 (134-434); RBC 4.37 M/mm3 (3.60-5.2); WHITE BLOOD COUNT 4.6 K/mm3 (4.0-10.0)
[2020-02-12 13:06] LABS: ALBUMIN 3.8 g/dl (3.4-5.0); BILIRUBIN,TOTAL 0.4 mg/dL (0.2-1); BLOOD UREA NITROGEN 9.9 mg/dL (7-18); CALCIUM 9.3 mg/dL (8.5-10.1); CREATININE 0.6 mg/dL (0.55-1.3); MAGNESIUM 2.4 mg/dL (1.8-2.4); POTASSIUM 3.7 mmol/L (3.5-5.1); TOT PROT 7.2 g/dl (6.4-8.2)
--- NOTE | 2020-02-12 13:26 | PN ---
Progress Note (short form) - Note Progress Note: PULMONARY No hemoptysis, shortness of breath, cough. Unable to produce sputum. Vital Signs Period Temp Pulse Resp BP Sys/Rodarte Pulse Ox Last 24 Hr 97.7 F-98.6 F 62-78 20-20 114-140/72-89 Gen: NAD at rest Heart: RRR Lung: decreased breath sounds at the bases Abd: soft, nontender Ext: no edema CBC, BMP 02/12/20 11:35 02/12/20 11:35 Active Medications Amlodipine Besylate (Norvasc -) 10 mg PO DAILY [facility] Last Admin: 02/12/20 09:06 Dose: 10 mg Documented by: Ascorbic Acid (Vitamin C -) 500 mg PO DAILY@0800 [facility] Last Admin: 02/12/20 08:47 Dose: 500 mg Documented by: Atorvastatin Calcium (Lipitor -) 10 mg PO HS [facility] Last Admin: 02/11/20 21:42 Dose: 10 mg Documented by: Docusate Sodium (Colace -) 100 mg PO DAILY PRN PRN Reason: CONSTIPATION Ferrous Sulfate (Feosol -) 325 mg PO DAILY@0800 [facility] Last Admin: 02/12/20 09:06 Dose: 325 mg Documented by: Hydrochlorothiazide (Hctz -) 12.5 mg PO DAILY [facility] Last Admin: 02/12/20 09:06 Dose: 12.5 mg Documented by: Polyethylene Glycol (Miralax (For Daily Use) -) 17 gm PO DAILY [facility] Last Admin: 02/12/20 09:06 Dose: 17 gm Documented by: Sodium Chloride (Normal Saline For Inhalation -) 3 ml IH Q6H PRN PRN Reason: WHEEZING A/P +Quantiferon Suspect Latent TB Hemoptysis likely from Epistaxis HTN Hyperlipidemia Lung Nodules - agree with treatment for latent TB - can continue treatment as outpt - no further inpatient work up from pulmonary standpoint - outpt f/u
--- NOTE | 2020-02-12 19:25 | PN ---
Progress Note, Physician History of Present Illness: Pt states she feels well. Denies cough/sputum production, hemoptysis, SOB, fever/chills. Wishes to go home. - Current Medication List Current Medications: Active Medications Amlodipine Besylate (Norvasc -) 10 mg PO DAILY [facility] Last Admin: 02/12/20 09:06 Dose: 10 mg Documented by: Ascorbic Acid (Vitamin C -) 500 mg PO DAILY@0800 [facility] Last Admin: 02/12/20 08:47 Dose: 500 mg Documented by: Atorvastatin Calcium (Lipitor -) 10 mg PO HS [facility] Last Admin: 02/11/20 21:42 Dose: 10 mg Documented by: Docusate Sodium (Colace -) 100 mg PO DAILY PRN PRN Reason: CONSTIPATION Ferrous Sulfate (Feosol -) 325 mg PO DAILY@0800 [facility] Last Admin: 02/12/20 09:06 Dose: 325 mg Documented by: Hydrochlorothiazide (Hctz -) 12.5 mg PO DAILY [facility] Last Admin: 02/12/20 09:06 Dose: 12.5 mg Documented by: Polyethylene Glycol (Miralax (For Daily Use) -) 17 gm PO DAILY [facility] Last Admin: 02/12/20 09:06 Dose: 17 gm Documented by: Sodium Chloride (Normal Saline For Inhalation -) 3 ml IH Q6H PRN PRN Reason: WHEEZING - Objective Vital Signs: Vital Signs Temperature 98.3 F 02/12/20 09:00 Pulse Rate 62 02/12/20 09:00 Respiratory Rate 20 02/12/20 09:00 Blood Pressure 125/76 02/12/20 09:00 O2 Sat by Pulse Oximetry (%) 100 02/11/20 09:00 Constitutional: Yes: No Distress, Calm Cardiovascular: Yes: Regular Rate and Rhythm Respiratory: Yes: CTA Bilaterally Gastrointestinal: Yes: Normal Bowel Sounds, Soft Genitourinary: Yes: WNL Extremities: Yes: WNL Integumentary: Yes: WNL Neurological: Yes: Alert, Oriented Labs: CBC, BMP 02/12/20 11:35 02/12/20 11:35 Laboratory Last Values WBC 4.6 K/mm3 (4.0-10.0) 02/12/20 11:35 RBC 4.37 M/mm3 (3.60-5.2) 02/12/20 11:35 Hgb 11.9 GM/dL (10.7-15.3) 02/12/20 11:35 Hct 36.6 % (32.4-45.2) 02/12/20 11:35 MCV 83.7 fl (80-96) 02/12/20 11:35 MCH 27.2 pg (25.7-33.7) 02/12/20 11:35 MCHC 32.4 g/dl (32.0-36.0) 02/12/20 11:35 RDW 14.0 % (11.6-15.6) 02/12/20 11:35 Plt Count 290 K/MM3 (134-434) 02/12/20 11:35 MPV 9.2 fl (7.5-11.1) 02/12/20 11:35 Absolute Neuts (auto) 2.1 K/mm3 (1.5-8.0) 02/12/20 11:35 Neutrophils % 45.5 % (42.8-82.8) 02/12/20 11:35 Lymphocytes % 42.7 % (8-40) H 02/12/20 11:35 Monocytes % 9.6 % (3.8-10.2) 02/12/20 11:35 Eosinophils % 1.5 % (0-4.5) 02/12/20 11:35 Basophils % 0.7 % (0-2.0) 02/12/20 11:35 Nucleated RBC % 0 % (0-0) 02/12/20 11:35 Sodium 138 mmol/L (136-145) 02/12/20 11:35 Potassium 3.7 mmol/L (3.5-5.1) 02/12/20 11:35 Chloride 102 mmol/L (98-107) 02/12/20 11:35 Carbon Dioxide 26 mmol/L (21-32) 02/12/20 11:35 Anion Gap 10 MMOL/L (8-16) 02/12/20 11:35 BUN 9.9 mg/dL (7-18) 02/12/20 11:35 Creatinine 0.6 mg/dL (0.55-1.3) 02/12/20 11:35 Est GFR (CKD-EPI)AfAm 135.91 02/12/20 11:35 Est GFR (CKD-EPI)NonAf 117.26 02/12/20 11:35 Random Glucose 83 mg/dL (74-106) 02/12/20 11:35 Calcium 9.3 mg/dL (8.5-10.1) 02/12/20 11:35 Magnesium 2.4 mg/dL (1.8-2.4) 02/12/20 11:35 Total Bilirubin 0.4 mg/dL (0.2-1) 02/12/20 11:35 AST 14 U/L (15-37) L 02/12/20 11:35 ALT 18 U/L (13-61) 02/12/20 11:35 Alkaline Phosphatase 54 U/L (45-117) 02/12/20 11:35 Total Protein 7.2 g/dl (6.4-8.2) 02/12/20 11:35 Albumin 3.8 g/dl (3.4-5.0) 02/12/20 11:35 Serum , Qual Negative 02/10/20 20:00 COVID-19 ([facility]) Not detected (Not Detected) 02/11/20 01:29 - ....Imaging Cat Scan: Report Reviewed Problem List - Problems (1) HLD (hyperlipidemia) Code(s): E78.5 - HYPERLIPIDEMIA, UNSPECIFIED (2) HTN (hypertension) Code(s): I10 - ESSENTIAL (PRIMARY) HYPERTENSION (3) Hemoptysis Code(s): R04.2 - HEMOPTYSIS (4) Positive 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 Code(s): R76.12 - NONSPEC REACTION TO GAMMA INTRFRN RESPNS W/O ACTV TUBRCLOSIS Assessment/Plan 34 y.o. female with HTN, HLD, anemia, sinusitis presents for occasional episodes of hemoptysis and recent +Quantiferon tests Likely latent TB HTN HLD Anemia Sinusitis -- pt afebrile, without cough, no hemoptysis or symptoms of active infection -- Currently on Amlodipine, suggest avoid Rifampin/Rifapentine unless can change anti-hypertensive med -- can give INH daily with Vit B6 50 mg po daily x 9 months, baseline LFT is normal - needs regular monitoring of LFTs, monitor for s/s of pulmonary infection, avoidance of alcohol while on treatment -- f/u as outpt
[2020-02-12] MEDS: ATORVASTATIN CA 10 MG TABLET (FP) PO SCH (22:13)
[2020-02-13 06:36] VITALS: BP 132/79; PULSE 67; TEMP 98.4
--- NOTE | 2020-02-13 07:53 | DS ---
Physical Exam: SUBJECTIVE: Patient seen and examined. Cleared medically and from Pulmonary and ID for discharge to home with outpatient follow OBJECTIVE: Vital Signs Period Temp Pulse Resp BP Sys/Rodarte Pulse Ox Last 24 Hr 98.1 F-98.4 F 62-80 18-20 119-132/70-79 98-99 PHYSICAL EXAM Constitutional: Yes: Well Nourished, No Distress, Calm Eyes: Yes: WNL, Conjunctiva Clear HENT: Yes: WNL, Atraumatic, Normocephalic Neck: Yes: WNL, Supple, Trachea Midline Cardiovascular: Yes: WNL, Regular Rate and Rhythm Respiratory: Yes: WNL, Regular, CTA Bilaterally Gastrointestinal: Yes: WNL, Normal Bowel Sounds ...Rectal Exam: Yes: Deferred Genitourinary: Yes: WNL Breast(s): Yes: WNL Musculoskeletal: Yes: WNL Extremities: Yes: WNL Edema: No Peripheral Pulses WNL: Yes Peripheral Pulses: Left Radial: 2+, Right Radial: 2+, Left Doralis Pedis: 2+, Right Dorsalis Pedis: 2+, Left Femoral: 2+, Right Femoral: 2+ Integumentary: Yes: WNL Neurological: Yes: WNL, Alert, Oriented ...Motor Strength: WNL Psychiatric: Yes: WNL LABS Laboratory Results - last 24 hr 02/11/20 02/12/20 02/12/20 01:29 11:35 11:35 WBC 4.6 RBC 4.37 Hgb 11.9 Hct 36.6 MCV 83.7 MCH 27.2 MCHC 32.4 RDW 14.0 Plt Count 290 MPV 9.2 Absolute Neuts (auto) 2.1 Neutrophils % 45.5 Lymphocytes % 42.7 H Monocytes % 9.6 Eosinophils % 1.5 Basophils % 0.7 Nucleated RBC % 0 Sodium 138 Potassium 3.7 Chloride 102 Carbon Dioxide 26 Anion Gap 10 BUN 9.9 Creatinine 0.6 Est GFR (CKD-EPI)AfAm 135.91 Est GFR (CKD-EPI)NonAf 117.26 Random Glucose 83 Calcium 9.3 Magnesium 2.4 Total Bilirubin 0.4 AST 14 L ALT 18 Alkaline Phosphatase 54 Total Protein 7.2 Albumin 3.8 COVID-19 ([facility]) Not detected HOSPITAL COURSE: Date of Admission:02/10/20 Date of Discharge: 02/13/20 Problem List - Problems (1) HTN (hypertension) Assessment/Plan: normotensive c/w hctz on dc Code(s): I10 - ESSENTIAL (PRIMARY) HYPERTENSION (2) HLD (hyperlipidemia) Assessment/Plan: c/w atorvastatin on dc low chol diet Code(s): E78.5 - HYPERLIPIDEMIA, UNSPECIFIED (3) Positive 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 Assessment/Plan: positive x 2 no infiltrate seen on CT right lower lobe pulmonic calcification 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 2mm right lower lobe pulmonary nodule can follow with pulmonary as outpt Code(s): R76.12 - NONSPEC REACTION TO GAMMA INTRFRN RESPNS W/O ACTV TUBRCLOSIS (4) Tuberculosis Assessment/Plan: latent TB AFB x 3 specimens-1 received cleared for DC-PATTI contacted Code(s): A15.9 - RESPIRATORY TUBERCULOSIS UNSPECIFIED (5) Person under investigation for COVID-19 Assessment/Plan: COVID PCR negative Code(s): Z20.828 - CONTACT W AND EXPOSURE TO OTH VIRAL COMMUNICABLE DISEASES (6) Prophylactic measure Assessment/Plan: FEN Fluids: adequate PO intake Electrolytes: wnl Nutrition: low chol diet DVT ambulatory Dispo discharge to home Code(s): Z29.9 - ENCOUNTER FOR PROPHYLACTIC MEASURES, UNSPECIFIED (7) Hemoptysis Assessment/Plan: none observed Code(s): R04.2 - HEMOPTYSIS Cleared for dc with pout patient f/u Minutes to complete discharge: 35 Discharge Summary Problems reviewed: Yes Reason For Visit: TUBERCULOSIS Current Active Problems HLD (hyperlipidemia) (Acute) HTN (hypertension) (Acute) Hemoptysis (Acute) Person under investigation for COVID-19 (Acute) Positive 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 (Acute) Prophylactic measure (Acute) Tuberculosis (Acute) Condition: Stable - Instructions Diet, Activity, Other Instructions: DISCHARGE YOUR VISIT You came to the hospital because had a positive quantiferon test. The Pulmonary and infectious disease doctors believe this is not an active case of TB. You will take 2 medications for 9 months. Isonniazid (INH) daily Vit B6 50mg daily MEDICATIONS Please continue to take your home medications as prescribed. There was no changes. AVOID alcohol while you take these medications. You will need regular monitoring of your liver function -you can follow with Dr Foss- and visits with the pulmon ologist-Dr Martínez or Dr Martinez DIET Continue your home diet ADDITIONAL CARE Please make an appointment to see your primary care provider, Dr Foss 1 week from today. ADDITIONAL INFORMATION Please call 911 or come directly to the emergency department if you experience unusual headache, vision change, shortness of breath, chest pain, numbness, tingling, loss of alertness/awareness, loss of function, unusual bleeding or any alarming symptoms. Thank you for allowing me to care for you. Konstantin Pop, [facility], [facility] [phone] DISCHARGE Referrals: Elayne Byrd MD [Staff Physician] - Kumar Martínez MD [Staff Physician] - Tricia Foss MD [Primary Care Provider] - Sachin Martinez MD, MD [Staff Physician] - (call for appointment) Disposition: HOME - Home Medications Comprehensive Discharge Medication List: Ambulatory Orders Amlodipine Besylate 10 mg PO DAILY 12/09/18 Ascorbic Acid [Vitamin C] 500 mg PO DAILY 12/09/18 Atorvastatin Ca [Lipitor] 10 mg PO HS 12/09/18 Docusate Sodium [Colace] 100 mg PO DAILY PRN 12/09/18 Ferrous Sulfate 325 mg PO DAILY 12/09/18 Polyethylene Glycol 3350 [Miralax 119 gm Btl -] 17 gm PO DAILY 12/09/18 Hydrochlorothiazide [Hctz -] 12.5 mg PO DAILY cap 02/13/20 Isoniazid [Nydrazid -] 450 mg PO DAILY #45 tablet 02/13/20 Pyridoxine HCl (B-6) [Vitamin B6 -] 50 mg PO DAILY #30 tablet 02/13/20 Prescription Drug Monitoring Program (I-STOP) results: I-STOP not reviewed Problem List - Problems (1) HTN (hypertension) Code(s): I10 - ESSENTIAL (PRIMARY) HYPERTENSION (2) HLD (hyperlipidemia) Code(s): E78.5 - HYPERLIPIDEMIA, UNSPECIFIED (3) Positive 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 Code(s): R76.12 - NONSPEC REACTION TO GAMMA INTRFRN RESPNS W/O ACTV TUBRCLOSIS (4) Tuberculosis Code(s): A15.9 - RESPIRATORY TUBERCULOSIS UNSPECIFIED (5) Person under investigation for COVID-19 Code(s): Z20.828 - CONTACT W AND EXPOSURE TO OTH VIRAL COMMUNICABLE DISEASES (6) Prophylactic measure Code(s): Z29.9 - ENCOUNTER FOR PROPHYLACTIC MEASURES, UNSPECIFIED (7) Hemoptysis Code(s): R04.2 - HEMOPTYSIS This patient is new to me today: No Emergency Visit: Yes ED Registration Date: 02/10/20 Care time: The patient presented to the Emergency Department on the above date and was hospitalized for further evaluation of their emergent condition. Critical Care patient: No - Discharge Referral Referred to [facility] Med P.C.: No
[2020-02-13] MEDS: FERROUS SO4 325 MG TABLET (FP) PO SCH (08:40)
[2020-02-13] MEDS: ASCORBIC ACID 500 MG TABLET (FP) PO SCH (08:40)
[2020-02-13 08:54] LABS: BASO % 0.3 % (0-2.0); EOS % 1.4 % (0-4.5); HEMATOCRIT 38.5 % (32.4-45.2); HEMOGLOBIN 12.6 GM/dL (10.7-15.3); LYMPH % 42.2 % (8-40); MCH 27.4 pg (25.7-33.7); MCHC 32.6 g/dl (32.0-36.0); MEAN CELL VOLUME 84.1 fl (80-96); MEAN PLT VOLUME 8.8 fl (7.5-11.1); MONO % 10.3 % (3.8-10.2); NEUT % 45.8 % (42.8-82.8); PLATELET COUNT 296 K/MM3 (134-434); RBC 4.58 M/mm3 (3.60-5.2); RDW 14.1 % (11.6-15.6); WHITE BLOOD COUNT 4.3 K/mm3 (4.0-10.0)
[2020-02-13] MEDS ORDERED: PT OWN MED DRAWER 7, Y5N ONE (09:19)
[2020-02-13 09:21] LABS: ALBUMIN 3.8 g/dl (3.4-5.0); BILIRUBIN,TOTAL 0.5 mg/dL (0.2-1); BLOOD UREA NITROGEN 12.2 mg/dL (7-18); CALCIUM 9.2 mg/dL (8.5-10.1); CREATININE 0.7 mg/dL (0.55-1.3); MAGNESIUM 2.4 mg/dL (1.8-2.4); POTASSIUM 3.8 mmol/L (3.5-5.1); TOT PROT 7.4 g/dl (6.4-8.2)
[2020-02-13] MEDS: POLYETHYLENE GLYCOL 3350 119 GM BTL PO SCH (09:21)
[2020-02-13] MEDS: HYDROCHLOROTHIAZIDE 12.5 MG CAPSULE (FP) PO SCH (09:21)
[2020-02-13] MEDS: amLODIPine BESYLATE 10 MG TABLET (FP) PO SCH (09:21)
[2020-02-13] MEDS ORDERED: PYRIDOXINE HCL (B-6) 50 MG TABLET (FP) PO SCH (10:00)
[2020-02-13] MEDS ORDERED: ISONIAZID 300 MG TABLET (FP) PO SCH (10:00)
--- NOTE | 2020-02-13 13:35 | PN ---
Progress Note (short form) - Note Progress Note: PULMONARY No hemoptysis, shortness of breath, cough. No sputum. Vital Signs Period Temp Pulse Resp BP Sys/Rodarte Pulse Ox Last 24 Hr 98.1 F-98.4 F 67-80 18-20 119-132/70-79 98-99 Gen: NAD at rest Heart: RRR Lung: decreased breath sounds at the bases Abd: soft, nontender Ext: no edema CBC, BMP 02/13/20 08:03 02/13/20 08:03 Active Medications Amlodipine Besylate (Norvasc -) 10 mg PO DAILY [facility] Last Admin: 02/13/20 09:21 Dose: 10 mg Documented by: Ascorbic Acid (Vitamin C -) 500 mg PO DAILY@0800 [facility] Last Admin: 02/13/20 08:40 Dose: 500 mg Documented by: Atorvastatin Calcium (Lipitor -) 10 mg PO HS [facility] Last Admin: 02/12/20 22:13 Dose: 10 mg Documented by: Docusate Sodium (Colace -) 100 mg PO DAILY PRN PRN Reason: CONSTIPATION Ferrous Sulfate (Feosol -) 325 mg PO DAILY@0800 [facility] Last Admin: 02/13/20 08:40 Dose: 325 mg Documented by: Hydrochlorothiazide (Hctz -) 12.5 mg PO DAILY [facility] Last Admin: 02/13/20 09:21 Dose: 12.5 mg Documented by: Isoniazid (Inh -) 450 mg PO DAILY [facility] Last Admin: 02/13/20 09:21 Dose: 450 mg Documented by: Polyethylene Glycol (Miralax (For Daily Use) -) 17 gm PO DAILY [facility] Last Admin: 02/13/20 09:21 Dose: 17 gm Documented by: Pyridoxine HCl (Vitamin B6 -) 50 mg PO DAILY [facility] Last Admin: 02/13/20 09:21 Dose: 50 mg Documented by: Sodium Chloride (Normal Saline For Inhalation -) 3 ml IH Q6H PRN PRN Reason: WHEEZING A/P +Quantiferon Latent TB Hemoptysis likely from Epistaxis HTN Hyperlipidemia Lung Nodules - agree with treatment for latent TB - monitor LFTs as outpt - no further inpatient work up, can discharge home from pulmonary standpoint
--- NOTE | 2020-02-14 10:14 | EKG ---
Test Reason : Blood Pressure : / mmHG Vent. Rate : 078 BPM Atrial Rate : 078 BPM P-R Int : 162 ms QRS Dur : 086 ms QT Int : 372 ms P-R-T Axes : 047 021 036 degrees QTc Int : 424 ms NORMAL SINUS RHYTHM NORMAL ECG NO PREVIOUS ECGS AVAILABLE Confirmed by Josie Brunson ([id number]) on 02/14/2020 10:14:10 AM Referred By: Confirmed By:Josie Brunson
== END 2020-02-13 14:31 | disposition home or self-care (01) | DRG 861 ==
LOC: JER 16:19 → JERBED 19:03 → J8W 02-11 02:03
PROVIDERS: ADMIT Internal Medicine Infectious Disease; ATTEND Nurse Practitioner Acute Care
DX: Z22.7 Latent tuberculosis (principal); I10 Essential (primary) hypertension; E78.5 Hyperlipidemia, unspecified; R04.2 Hemoptysis; D64.9 Anemia, unspecified; J32.9 Chronic sinusitis, unspecified; R91.1 Solitary pulmonary nodule; R59.1 Generalized enlarged lymph nodes; R76.12 Nonspecific reaction to cell mediated immunity measurement of gamma interferon antigen response without active tuberculosis
CPT/HCPCS: 36415; 70360-TC-FY; 71270-TC; 80053; 83735; 84703; 85025; 85027; 87116; 87206; 93005; 93010; 99285-25; Q9967; U0003

== ENCOUNTER 2021-05-02 17:05 | Emergency (ER) | payer OTHER ==
[2021-05-02 17:10] VITALS: BP 143/88; PULSE 67; TEMP 98.2; BMI 29.0
[2021-05-02] MEDS ORDERED: AMOX TR/POT CLAV 875MG/125MG TABLETS (FP) PO ONE (17:52)
[2021-05-02] MEDS ORDERED: DIPHTH,PERTUSS(ACELL),TET 0.5 ML DISP.SYRIN IM ONE ×2 (17:52→17:55)
[2021-05-02] MEDS ORDERED: AMOX TR/POT CLAV 875MG/125MG TABLETS (FP) ONE (17:55)
== END 2021-05-02 18:08 | disposition home or self-care (01) ==
LOC: JERFT 17:05
PROC: 3E0234Z Introduction of Serum, Toxoid and Vaccine into Muscle, Percutaneous Approach (ICD-10-PCS; principal; 2021-05-02)
DX: S60.419A Abrasion of unspecified finger, initial encounter (principal); W50.3XXA Accidental bite by another person, initial encounter
CPT/HCPCS: 90715; 99284-25

== ENCOUNTER 2022-03-19 04:29 | Day surgery (SDC) | payer OTHER ==
[2022-01-17 16:54] VITALS: BMI 30.9
[2022-03-19 12:31] VITALS: TEMP 98
[2022-03-19 13:05] VITALS: PULSE 60
[2022-03-19 13:09] VITALS: BP 126/71; RESP 18
== END 2022-03-19 13:34 | disposition home or self-care (01) ==
LOC: JASU-ENDO 04:29
PROVIDERS: ATTEND Internal Medicine Gastroenterology
PROC: 0DJD8ZZ Inspection of Lower Intestinal Tract, Via Natural or Artificial Opening Endoscopic (ICD-10-PCS; principal; 2022-03-19 11:45)
DX: K64.8 Other hemorrhoids (principal)
CPT/HCPCS: 81025

== ENCOUNTER 2022-12-29 22:08 | Emergency (ER) | payer OTHER ==
[2022-12-29 22:13] VITALS: BP 179/106; PULSE 85; RESP 18; TEMP 97.6; BMI 32.3
[2022-12-29] MEDS ORDERED: LIDOCAINE 5% TOPICAL PATCH TP ONE (22:42)
[2022-12-29] MEDS ORDERED: ACETAMINOPHEN 500 MG TABLET (FP) PO ONE (22:43)
[2022-12-29] MEDS ORDERED: CYCLOBENZAPRINE HCL 10 MG TABLET (FP) PO ONE (22:47)
[2022-12-29] MEDS ORDERED: CYCLOBENZAPRINE HCL 5 MG TABLET ONE (22:49)
[2022-12-29] MEDS ORDERED: LIDOCAINE 5% TOPICAL PATCH ONE (22:49)
[2022-12-29] MEDS ORDERED: ACETAMINOPHEN 325 MG TABLET (FP) ONE (22:49)
[2022-12-30] MEDS ORDERED: CYCLOBENZAPRINE HCL 5 MG TABLET PO SCH (10:00)
[2022-12-30] MEDS ORDERED: LIDOCAINE PATCH REMOVAL MC SCH (10:00)
== END 2022-12-29 23:40 | disposition home or self-care (01) ==
LOC: JER 22:08
DX: I10 Essential (primary) hypertension (principal); S16.1XXA Strain of muscle, fascia and tendon at neck level, initial encounter; M54.2 Cervicalgia; X58.XXXA Exposure to other specified factors, initial encounter
CPT/HCPCS: 93005; 93010; 99283-25

== ENCOUNTER 2023-08-14 04:34 | Day surgery (SDC) | payer OTHER ==
[2023-08-08 13:15] VITALS: BMI 32.4
[2023-08-14 10:56] VITALS: TEMP 98
[2023-08-14 11:20] VITALS: RESP 15
[2023-08-14 12:04] VITALS: BP 143/76; PULSE 59
== END 2023-08-14 12:02 | disposition home or self-care (01) ==
LOC: JASU-ENDO 04:34
PROVIDERS: ATTEND Internal Medicine Gastroenterology
PROC: 0DJD8ZZ Inspection of Lower Intestinal Tract, Via Natural or Artificial Opening Endoscopic (ICD-10-PCS; principal; 2023-08-14 10:15)
DX: K64.8 Other hemorrhoids (principal); K92.1 Melena
CPT/HCPCS: 81025

== ENCOUNTER 2023-12-02 16:17 | Day surgery (SDC) | payer OTHER ==
[2023-12-02] MEDS ORDERED: ACETAMINOPHEN INJECTION 100 ML IVPB ONE (16:57)
[2023-12-02] MEDS: SODIUM CHLORIDE 0.9% 500 ML INFUS.BAG IV ONE (17:18)
[2023-12-02] MEDS: ACETAMINOPHEN 1000 MG/100 ML BAG IVPB ONE (17:23)
[2023-12-02] MEDS: morphine CARPU-JECT 2 MG/1 ML DISP.SYRIN IVPUSH ONE (17:41)
[2023-12-02 17:47] LABS: PH,URINE 6.5 (5.0-8.0); URINE APPEARANCE CLEAR; URINE BILIRUBIN NEGATIVE (NEGATIVE); URINE COLOR YELLOW; URINE GLUCOSE (UA) NEGATIVE (NEGATIVE); URINE KETONE NEGATIVE (NEGATIVE); URINE LEUK ESTERASE NEGATIVE (NEGATIVE); URINE NITRITE NEGATIVE (NEGATIVE); URINE PROTEIN NEGATIVE (NEGATIVE); URINE UROBILINOGEN 0.2 mg/dL (0.2-1.0)
[2023-12-02 17:48] LABS: BASO % 0.7 % (0-2.0); EOS % 1.2 % (0-4.5); HEMATOCRIT 27.5 % (32.4-45.2); HEMOGLOBIN 8.5 GM/dL (10.7-15.3); LYMPH % 41.8 % (8-40); MCH 20.5 pg (25.7-33.7); MCHC 30.9 g/dl (32.0-36.0); MEAN CELL VOLUME 66.2 fl (80-96); MEAN PLT VOLUME 8.7 fl (7.5-11.1); MONO % 9.1 % (3.8-10.2); NEUT % 47.2 % (42.8-82.8); PLATELET COUNT 362 10^3/uL (134-434); RBC 4.16 M/mm3 (3.60-5.2); RDW 16.7 % (11.6-15.6); WHITE BLOOD COUNT 4.4 K/mm3 (4.0-10.0)
[2023-12-02 17:56] LABS: CHLORIDE 104 mmol/L (98-107); SODIUM 136 mmol/L (136-145)
[2023-12-02 17:58] LABS: ALBUMIN 3.6 g/dl (3.4-5.0); ANION GAP 2 mmol/L (4-13); BLOOD UREA NITROGEN 11.3 mg/dL (7-18); CALCIUM 8.7 mg/dL (8.5-10.1); CO2 30 mmol/L (21-32)
[2023-12-02 18:00] LABS: GLUCOSE,RANDOM 83 mg/dL (74-106)
[2023-12-02 18:01] LABS: CREATININE 0.6 mg/dL (0.55-1.3)
[2023-12-02 18:02] LABS: SGOT/AST 27 U/L (15-37); SGPT/ALT 17 U/L (13-61)
[2023-12-02 18:03] LABS: BILIRUBIN,TOTAL 0.2 mg/dL (0.2-1); TOT PROT 6.9 g/dl (6.4-8.2)
[2023-12-02 18:04] LABS: ALK PHOS 49 U/L (45-117)
[2023-12-02 18:23] LABS: ANISOCYTOSIS 1+; MACROCYTOSIS 0; OVALOCYTE 1+; TARGET CELLS 1+
[2023-12-02 18:56] LABS: ERYTHROCYTE SEDIMENTATION RATE 12 mm/hr (0-20)
[2023-12-02] MEDS ORDERED: PIPERACILLIN/TAZOB 3.375 GM 3.375 GM/50 ML BAG IVPB ONE (19:51)
[2023-12-02] MEDS: PIPERACILLIN/TAZOB 3.375 GM 3.375 GM in DEXTROSE 5%-WATER - 50 ML IVPB ONE (20:19)
[2023-12-02 20:37] LABS: INR 1.2 (0.83-1.09); PROTHROMBIN TIME (PATIENT) 13.9 SEC (9.7-13.0)
[2023-12-02] MEDS ORDERED: ACETAMINOPHEN 1000 MG/100 ML BAG IVPB PRN (21:37)
[2023-12-02] MEDS: LOSARTAN POTASSIUM 50 MG TABLET PO SCH (23:12)
[2023-12-03 00:28] VITALS: BMI 31.8
[2023-12-03] MEDS: LACTATED RINGERS SOLUTION 1,000 ML/1,000 ML INFUS.BAG IV SCH (01:59)
[2023-12-03] MEDS: PIPERACILLIN/TAZOB 3.375 GM 3.375 GM in DEXTROSE 5%-WATER - 50 ML IVPB SCH (02:00)
[2023-12-03] MEDS ORDERED: PIPERACILLIN/TAZOB 3.375 GM 3.375 GM in DEXTROSE 5%-WATER - 50 ML IVPB SCH (02:00)
[2023-12-03 08:37] LABS: HEMATOCRIT 25.1 % (32.4-45.2); HEMOGLOBIN 7.7 GM/dL (10.7-15.3); MCH 20.3 pg (25.7-33.7); MCHC 30.7 g/dl (32.0-36.0); MEAN CELL VOLUME 66.2 fl (80-96); MEAN PLT VOLUME 7.7 fl (7.5-11.1); PLATELET COUNT 306 10^3/uL (134-434); RBC 3.79 M/mm3 (3.60-5.2)
[2023-12-03 08:52] LABS: POTASSIUM 3.7 mmol/L (3.5-5.1)
[2023-12-03 08:57] LABS: CALCIUM 8.8 mg/dL (8.5-10.1)
[2023-12-03 08:58] LABS: ALBUMIN 3.1 g/dl (3.4-5.0); BLOOD UREA NITROGEN 7.1 mg/dL (7-18); MAGNESIUM 2.1 mg/dL (1.8-2.4)
[2023-12-03 09:01] LABS: CREATININE 0.5 mg/dL (0.55-1.3); PHOSPHOROUS 3.8 mg/dL (2.5-4.9)
[2023-12-03 09:03] LABS: BILIRUBIN,TOTAL 0.6 mg/dL (0.2-1)
[2023-12-03] MEDS ORDERED: HYDROCHLOROTHIAZIDE 25 MG TABLET (FP) PO SCH (10:00)
[2023-12-03] MEDS ORDERED: FERROUS SO4 325 MG TABLET (FP) PO SCH (10:00)
[2023-12-03] MEDS ORDERED: HYDROCHLOROTHIAZIDE 12.5 MG CAPSULE (FP) PO SCH (10:00)
[2023-12-03] MEDS ORDERED: MULTIVITAMINS (DAILY MVI) TABLET (FP) PO SCH (10:00)
[2023-12-03] MEDS ORDERED: ONDANSETRON 4 MG/2 ML VIAL IVPUSH PRN ×2 (10:21→12:29)
[2023-12-03] MEDS ORDERED: oxyCODONE HCL 5 MG TABLET PO PRN ×2 (10:21→12:29)
[2023-12-03] MEDS ORDERED: ROCURONIUM BROMIDE 50 MG/5 ML SYRINGE ONE (10:29)
[2023-12-03] MEDS ORDERED: FENTANYL CITRATE/PF 50 MCG/ML VIAL ONE ×2 (10:29→12:50)
[2023-12-03] MEDS ORDERED: PROPOFOL 40 ML ONE (10:29)
[2023-12-03] MEDS ORDERED: MIDAZOLAM HCL 2 MG/2 ML SINGLE DOSE VIAL ONE (10:29)
[2023-12-03] MEDS ORDERED: BUPIVACAINE HCL/PF 0.5% (5MG/ML) 10 ML VIAL ONE (10:34)
[2023-12-03] MEDS ORDERED: PIPERACILLIN/TAZOBACTAM 3.375 GM VIAL IVPB ONE (10:53)
[2023-12-03] MEDS ORDERED: ACETAMINOPHEN INJECTION 100 ML IVPB ONE (10:53)
[2023-12-03] MEDS: PIPERACILLIN/TAZOBACTAM 3.375 GM VIAL IVPB ONE ×2 (11:00)
[2023-12-03] MEDS ORDERED: DEXAMETHASONE SOD PHOSPHATE 4 MG/1 ML VIAL ONE (11:10)
[2023-12-03] MEDS ORDERED: KETOROLAC TROMETHAMINE 30 MG/1 ML VIAL ONE (11:10)
[2023-12-03] MEDS ORDERED: ONDANSETRON 4 MG/2 ML VIAL ONE (11:10)
[2023-12-03] MEDS: BUPIVACAINE HCL/PF 0.5% (5MG/ML) 10 ML VIAL IJ ONE ×3 (11:17)
[2023-12-03] MEDS ORDERED: PROPOFOL 20 ML ONE (11:19)
[2023-12-03] MEDS: LACTATED RINGERS SOLUTION 1,000 ML IV SCH ×2 (13:10→18:15)
[2023-12-03] MEDS: ACETAMINOPHEN 325 MG TABLET (FP) PO SCH (16:36)
[2023-12-03 18:51] VITALS: RESP 18
[2023-12-04 08:29] LABS: HEMATOCRIT 24.1 % (32.4-45.2); HEMOGLOBIN 7.5 GM/dL (10.7-15.3); MCH 20.6 pg (25.7-33.7); MCHC 31.1 g/dl (32.0-36.0); MEAN CELL VOLUME 66.4 fl (80-96); MEAN PLT VOLUME 8.2 fl (7.5-11.1); PLATELET COUNT 280 10^3/uL (134-434); RBC 3.63 M/mm3 (3.60-5.2); RDW 16.4 % (11.6-15.6); WHITE BLOOD COUNT 7.8 K/mm3 (4.0-10.0)
[2023-12-04 08:55] LABS: POTASSIUM 3.7 mmol/L (3.5-5.1)
[2023-12-04 09:11] VITALS: BP 156/98; PULSE 65; TEMP 98.5
[2023-12-04 09:20] LABS: BLOOD UREA NITROGEN 12.4 mg/dL (7-18)
[2023-12-04 09:22] LABS: CREATININE 0.6 mg/dL (0.55-1.3)
[2023-12-04 09:23] LABS: BILIRUBIN,TOTAL 0.4 mg/dL (0.2-1)
== END 2023-12-04 13:28 | disposition home or self-care (01) ==
LOC: JER 16:17 → UNDOADMIN 19:26 → JERBED 19:26 → J5S 20:56 → JERBED 20:56 → JASUSAT 12-03 09:28 → J5S 12-03 09:39 → JASUSAT 12-04 13:28
PROC: 3E030GC Introduction of Other Therapeutic Substance into Peripheral Vein, Open Approach (ICD-10-PCS; 2023-12-03)
PROC: 3E030GC Introduction of Other Therapeutic Substance into Peripheral Vein, Open Approach (ICD-10-PCS; 2023-12-03)
PROC: 3E033GC Introduction of Other Therapeutic Substance into Peripheral Vein, Percutaneous Approach (ICD-10-PCS; principal; 2023-12-03 10:00)
DX: K35.30 Acute appendicitis with localized peritonitis, without perforation or gangrene (principal); R10.31 Right lower quadrant pain
CPT/HCPCS: 36415; 74177-TC; 80053; 81003; 82728; 83540; 83550; 83735; 84100; 84703; 85025; 85027; 85045; 85610; 85651; 86140; 86850; 86900; 86901; 87086; 88304-TC; 93005; 93010; 94010; 94760; 99285-25; J0131; Q9967

== ENCOUNTER 2025-03-10 12:08 | Day surgery (SDC) | payer OTHER ==
[2025-03-10] MEDS: FERRIC CARBOXYMALTOSE 750 MG in SODIUM CHLORIDE 250 ML IVPB ONE (12:57)
[2025-03-10 17:12] VITALS: BP 136/85; PULSE 69; RESP 18; TEMP 98.1
== END 2025-03-10 13:00 | disposition home or self-care (01) ==
LOC: JONCNONCHE 12:08 → J7W 12:09 → JONCNONCHE 13:00
PROVIDERS: ATTEND Internal Medicine Hematology & Oncology
PROC: 3E033GC Introduction of Other Therapeutic Substance into Peripheral Vein, Percutaneous Approach (ICD-10-PCS; principal; 2025-03-10)
DX: D50.9 Iron deficiency anemia, unspecified (principal)
CPT/HCPCS: 84703; 96365; J1439